=== PATIENT | male | born 1985 | race African-American/Black ===

== ENCOUNTER 2018-01-27 10:53 | Emergency (ER) | payer MEDICAID ==
[~2018-01-27] VITALS: Ht 188 cm; Wt 80.0 kg
[2018-01-27 13:25] LABS: BASOPHILS % 0.6 % (0.0-2.0); HEMATOCRIT. 41.5 % (42.0-52.0); HEMOGLOBIN. 14.3 g/dL (14.0-18.0); LYMPHOCYTES % 41.6 % (20.0-50.0); MEAN CORPUSCULAR HEMOGLOBIN 31.5 pg (28.0-32.0); MEAN CORPUSCULAR VOLUME 91.4 fL (80.0-94.0); MEAN PLATELET VOLUME 7.8 fl (7.4-10.4); NEUTROPHILS % 43.8 % (40.0-76.0); PLATELET 247 x1000/uL (130-400); RED BLOOD CELL COUNT 4.55 mill/uL (4.7-6.1); RED CELL DISTRIBUTION WIDTH 12.6 % (11.6-14.6)
[2018-01-27 13:26] LABS: CHLORIDE 103 mEq/L (98-107)
[2018-01-27 13:30] LABS: ETHANOL BLOOD < 10 mg/dL
[2018-01-27 14:25] LABS: KETONES URINE 1+ (NEGATIVE); LEUKOCYTE ESTERASE URINE NEGATIVE (NEGATIVE); NITRITE URINE NEGATIVE (NEGATIVE); OCCULT BLOOD URINE NEGATIVE (NEGATIVE); PROTEIN URINE TRACE (NEGATIVE); UROBILINOGEN URINE 0.2 E.U./dL (0.2-1.0)
[2018-01-27 14:28] LABS: CLARITY URINE CLEAR (CLEAR); COLOR URINE YELLOW (YELLOW)
[2018-01-27 14:42] LABS: *AMPHETAMINES SCREEN URINE NEGATIVE (NEGATIVE); *BARBITURATES SCREEN URINE NEGATIVE (NEGATIVE); *BENZODIAZEPINES SCREEN URINE NEGATIVE (NEGATIVE); *COCAINE SCREEN URINE NEGATIVE (NEGATIVE)
[2018-01-27 14:43] LABS: CANNABINOID URINE SCREEN PRESUMTIVE POSITIVE (NEGATIVE); METHADONE URINE SCREEN NEGATIVE (NEGATIVE); OPIATES URINE SCREEN NEGATIVE (NEGATIVE); PHENCYCLIDINE URINE SCREEN NEGATIVE (NEGATIVE)
[2018-01-27] MEDS ORDERED: LORAZEPAM 1MG TABLET PO ONE (15:30)
[2018-01-27] MEDS: OLANZAPINE 10MG TABLET PO SCH (15:52)
[2018-01-28] MEDS: OLANZAPINE 10MG TABLET PO SCH (09:00)
[2018-01-28 11:00] VITALS: BP 117/75
== END 2018-01-28 12:20 | disposition left against medical advice (07) ==
LOC: ER 11:06
DX: F23 Brief psychotic disorder (principal); M25.561 Pain in right knee
CPT/HCPCS: 36415; 73562; 80053; 80305; 81003; 82962; 85025; 99285; G0482; Z7610